=== PATIENT | male | born 1985 | race Caucasian/White ===

== ENCOUNTER 2016-12-04 20:42 | Emergency (ER) | payer OTHER ==
[~2016-12-04] VITALS: Ht 177.8 cm; Wt 123.5 kg
[~2016-12-04 20:42] MED LIST: AZIT250T5 PO; CEPH500T PO; CLAR500T2 PO; DULO60CA7 PO; FLUO10CA29 PO; FLUO20CA42 GT; GNT.3OP5 OU; HYDR-3702 PO; HYDR-3754 PO; LEVO300T5 PO; LISI-596; NF-TORA10 PO; OLOP5DRO OU; ONDAN4ODT PO; OXYC-109 PO; OXYC1TAB87 PO
--- OUTSIDE RECORDS SUMMARY | 2016-12-04 20:47 | XMS REPORT | Continuity of Care Document ---
Author Author [facility] Organization [facility] Address Unknown Phone Unavailable Care Team Providers Care Advanced Registered Nurse Name Role Phone CARLOSKLAUS MD PCP [phone] Insurance Providers Payer Name Policy Number Subscriber Name Relationship [employer] [id number] Phong Ashley 01 Chief Complaint and Reason for Visit Chief Complaint Altered Neurologic Status Reason for Visit [id number] Cervical radiculopathy Problems Medical Problems Problem Onset Date Status Cough 05/11/2012 Active Headache 05/11/2012 Active Fever 05/11/2012 Active Abdominal pain 11/08/2012 Active Crushing injury of finger ~11/26/2013 Active Viral pneumonia Unknown Active Cervical radiculopathy Unknown Active Near syncope Unknown Active Medications Medication Dose Route Sig Days/Qty Instructions Order Date Discontinued Date Status Lisinopril 05/11/12 11/08/12 Discontinued Azithromycin 250 Mg ORAL DAILY 3 Days 05/11/12 11/08/12 Discontinued Fluoxetine Hcl 20 Mg GT 11/26/13 06/01/14 Discontinued Fluoxetine Hcl 20 Mg ORAL DAILY 11/26/13 06/01/14 Discontinued Cephalexin 500 Mg ORAL FOUR TIMES DAILY 28 Qty 11/26/13 06/01/14 Discontinued Hydrocodone Bit/Acetaminophen 1 Tab ORAL Q 4H PRN 15 Qty Pain 11/26/13 06/01/14 Discontinued Clarithromycin 500 Mg ORAL TWICE A DAY 06/01/14 03/05/15 Discontinued Levothyroxine Sodium 325 Mcg ORAL DAILY 03/05/15 Active Acetaminophen/Hydrocodone Bitart 1 Tab ORAL EVERY 6 HOURS PRN PAIN 04/05/15 Discontinued Oxycodone Hcl/Acetaminophen 1 Tab ORAL NEEDED PRN PAIN 04/05/15 Active Social History No social history. Hospital Discharge Instructions No hospital discharge instructions. Plan of Care Discharge Date 04/06/15 4:02am Disposition 01 HOME OR SELF-CARE Condition at Discharge Stable Instructions/Education Provided Syncope (ED) Cervical Radiculopathy (ED) Prescriptions See Medications Section Referrals KLAUS MERCADO MD Additional Instructions/Education Follow up with your neurosurgeon later today regarding the discomfort and swelling from your neck surgery. Follow up with Dr. Mercado if you have any further issues with dizziness or near-fainting, and regarding your abnormal liver tests. Stay well hydrated and get up slowly to avoid fainting. Some of your test results may not be complete prior to your leaving the Emergency Department. The Emergency Department is not authorized to give test results over the phone. Please contact the doctor's office listed in this packet of information for your final results. Follow up with your primary care physician or return to the Emergency Department for worsening or worrisome symptoms. * Emergency Department phone number: [phone], x [phone]* MEDICAL RECORD If you need copies of your X-rays, call [phone]. If you need copies of your medical record, including lab results, a signed authorization for release of records will be required. A telephone call for release of Health Information is not allowed. BILLING Billing can sometimes be confusing and frustrating. To help avoid confusion in the future, please take a moment to acquaint yourself with the billing parties for services. SERVICE BILLING DEMOCRAT Emergency Room Services [facility] Physician Services [facility] X-rays [place] [facility] Patients will receive bills for services from the appropriate provider. If you have any questions about your [facility] bill, our staff will be happy to assist you. Please call [phone], and ask for the billing department. THANK YOU for choosing [facility] as your emergency care provider! Functional Status No functional status results. Allergies, Adverse Reactions, Alerts Allergen Type Severity Reaction Status Last Updated MORPHI Adverse Reaction Mild Nausea/Vomiting Active 04/05/15 Immunizations No immunization records. Vital Signs Acute Vital Signs Vital Response Date/Time Temperature (Fahrenheit) 97.1 Pulse 89 bpm Respirations 16 Height 5 ft 10 in Weight 275 lb Body Mass Index 39.0 kg/m^2 Results Test Source Date Result Interp. Ref. Range Comments Thyroid Stimulating Hormone (TSH) April 05, 2015 11:30pm 4.50 uIU/mL N 0.46-4.68 Activated Partial Thromboplast Time June 01, 2014 5:25pm 31.4 SEC N 25.0-39.0 Alanine Aminotransferase (ALT/SGPT) April 05, 2015 11:30pm 91 U/L H 30- 65 Albumin April 05, 2015 11:30pm 4.4 g/dL N 3.4-5.0 Albumin/Globulin Ratio April 05, 2015 11:30pm 1.189 N 1.1-1.8 Alkaline Phosphatase April 05, 2015 11:30pm 86 U/L N 38-126 Anion Gap April 05, 2015 11:30pm 18.8 MEQ/L H 3-15 Aspartate Amino Transf (AST/SGOT) April 05, 2015 11:30pm 59 U/L H 15-37 B-Type Natriuretic Peptide June 01, 2014 5:25pm 5 PG/ML N 0-100 BUN/Creatinine Ratio April 05, 2015 11:30pm 13 N 10-20 Basophils # (Auto) April 05, 2015 11:30pm 0.0 10^3uL Basophils (%) (Auto) April 05, 2015 11:30pm 0 % N 0-2 Blood Urea Nitrogen April 05, 2015 11:30pm 13 mg/dL N 7-18 C-Reactive Protein April 05, 2015 11:30pm 2.10 mg/dL H 0.0-0.9 Calcium Level April 05, 2015 11:30pm 9.5 mg/dL N 8.8-10.8 Calcium/Ionized Calcium Ratio April 05, 2015 11:30pm 3.9 mg/dL N 3.8-4.6 Calculated Osmolality April 05, 2015 11:30pm 277 mosm/L L 280-300 Carbon Dioxide Level April 05, 2015 11:30pm 25 mmol/L N 22-29 Chloride Level April 05, 2015 11:30pm 103 mmol/L N 98-108 Creatine Kinase MB April 05, 2015 11:30pm 0.8 ng/mL N 0.0-6.0 Creatinine April 05, 2015 11:30pm 0.99 mg/dL N 0.8-1.5 D-Dimer April 05, 2015 11:30pm 0.81 ug/mL PH 0.00-0.41 Results called to PAT IN ER FOR DR. Rees read back the results. Called by Karla Ragsdale at [phone] Eosinophils # (Auto) April 05, 2015 11:30pm 0.3 10^3uL Eosinophils (%) (Auto) April 05, 2015 11:30pm 2 % N 0-4 Estimat Glomerular Filtration Rate April 05, 2015 11:30pm 106.0 Estimated GFR (Non- April 05, 2015 11:30pm 87.6 Glucose Level April 05, 2015 11:30pm 115 mg/dL H 70-110 Group A Streptococcus Screen May 11, 2012 12:00am Negative Negative Hematocrit April 05, 2015 11:30pm 43.90 % N 39.00-50.00 Hemoglobin April 05, 2015 11:30pm 15.5 g/dL N 13.5-17.0 Lipase November 08, 2012 7:00am 49 U/L N 23-300 Lymphocytes # (Auto) April 05, 2015 11:30pm 3.8 X10^3 Lymphocytes (%) (Auto) April 05, 2015 11:30pm 31 % N 20-46 Mean Corpuscular Hemoglobin April 05, 2015 11:30pm 30.6 PG N 26.0-34.0 Mean Corpuscular Hemoglobin Concent April 05, 2015 11:30pm 35.3 g/dL N 31.0-37.0 Mean Corpuscular Volume April 05, 2015 11:30pm 87 FL N 80-100 Mean Platelet Volume April 05, 2015 11:30pm 11.2 FL H 6.0-9.5 Monocytes # (Auto) April 05, 2015 11:30pm 0.7 X10^3 Monocytes (%) (Auto) April 05, 2015 11:30pm 6 % N 3-11 JG-Mbi-U-Type Natriuretic Peptide April 05, 2015 11:30pm 14 pg/mL N 0- 125 <300 ng/mL - HF unlikely Age <50 years, NT-proBNP >450 pg/mL - HF Likely Age 50-75 yrs, NT-proBNP >900 pg/mL - HF Likely Age >75 yrs, NT-proBNP >1800 - HF likely Neutrophils # (Auto) April 05, 2015 11:30pm 7.3 X10^3 Neutrophils (%) (Auto) April 05, 2015 11:30pm 60 % N 51-67 Platelet Count April 05, 2015 11:30pm 249 10^3uL N 150-450 Potassium Level April 05, 2015 11:30pm 4.1 mmol/L N 3.5-5.1 Prothromb Time International Ratio April 05, 2015 11:30pm 1.0 N 0.8-1.4 Prothrombin Time April 05, 2015 11:30pm 12.7 SEC N 11.9-14.2 Red Blood Count April 05, 2015 11:30pm 5.07 10^6uL N 4.50-5.50 Red Cell Distribution Width April 05, 2015 11:30pm 12.3 % N 11.8-15.6 Sodium Level April 05, 2015 11:30pm 143 mmol/L N 135-150 Total Bilirubin April 05, 2015 11:30pm 0.4 mg/dL DN 0.1-1.0 Total Creatine Kinase April 05, 2015 11:30pm 179 U/L H 55-170 Total Protein April 05, 2015 11:30pm 8.1 g/dL N 6.4-8.5 Troponin I April 05, 2015 11:30pm < 0.012 ng/mL 0.010-0.080 Urine Bacteria April 05, 2015 11:23pm None seen /HPF Urine collection method Clean Catch Urine Bilirubin April 05, 2015 11:23pm Negative Negative Urine collection method Clean Catch Urine Blood November 08, 2012 8:50am Negative Negative Urine Clarity April 05, 2015 11:23pm Clear Urine collection method Clean Catch Urine Collection Type April 05, 2015 11:23pm Random voided Urine collection method Clean Catch Urine Color April 05, 2015 11:23pm Yellow Urine collection method Clean Catch Urine Glucose (UA) April 05, 2015 11:23pm Negative Negative Urine collection method Clean Catch Urine Ketones April 05, 2015 11:23pm Negative Negative Urine collection method Clean Catch Urine Leukocyte Esterase April 05, 2015 11:23pm Negative Negative Urine collection method Clean Catch Urine Mucus April 05, 2015 11:23pm 2+ H Urine collection method Clean Catch Urine Nitrite April 05, 2015 11:23pm Negative Negative Urine collection method Clean Catch Urine Protein April 05, 2015 11:23pm Negative Negative Urine collection method Clean Catch Urine RBC April 05, 2015 11:23pm 2-5 /HPF Urine collection method Clean Catch Urine RBC (Auto) April 05, 2015 11:23pm Trace-lysed H Negative Urine collection method Clean Catch Urine Specific [place] April 05, 2015 11:23pm 1.025 1.005-1.030 Urine collection method Clean Catch Urine Squamous Epithelial Cells April 05, 2015 11:23pm 0-2 /LPF Urine collection method Clean Catch Urine Urobilinogen April 05, 2015 11:23pm 0.2 mg/dL 0.2-1.0 Urine collection method Clean Catch Urine WBC April 05, 2015 11:23pm None seen /HPF Urine collection method Clean Catch Urine pH April 05, 2015 11:23pm 5.0 5.0 - 8.0 Urine collection method Clean Catch Volume Urine Centrifuged April 05, 2015 11:23pm 12 ml Urine collection method Clean Catch White Blood Count April 05, 2015 11:30pm 12.12 10^3uL H 4.0-11.0 Procedures No known history of procedures. Encounters Encounter Location Date/Time Departed Emergency Room [facility] 04/05/15 9:43pm Recent Diagnosis
--- OUTSIDE RECORDS SUMMARY | 2016-12-04 20:47 | XMS REPORT | Continuity of Care Document ---
Author Author [facility] Organization [facility] Address Unknown Phone Unavailable Care Team Providers Care Patient Accounts Specialist Name Role Phone CARLOSKLAUS MD PCP [phone] Insurance Providers Payer Name Policy Number Subscriber Name Relationship [employer] [id number] Phong Ashley 01 Chief Complaint and Reason for Visit Chief Complaint Altered Neurologic Status Reason for Visit [id number] Cervical radiculopathy Problems Medical Problems Problem Onset [...] worrisome symptoms. * Emergency Department phone number: [phone], x [phone]* MEDICAL RECORD If you need copies of your X-rays, call [phone]. If you need copies of [...] the billing parties for services. SERVICE BILLING [facility]PUBL[facility] Emergency Room Services [facility] Physician Services [facility] X-rays [place] [facility] Patients will receive bills for services from the appropriate provider. If you have any questions about your [facility] bill, our staff will be happy to assist you. Please call [phone], and ask for the billing department. THANK YOU for choosing [facility] as your emergency care provider! Functional Status [...] 05, 2015 11:30pm 6 % N 3-11 QI-Ome-B-Type Natriuretic Peptide April 05, 2015 11:30pm 14 [...] Urine collection method Clean Catch Urine Specific [place] April 05, 2015 11:23pm 1.025 1.005-1.030 Urine [...] Encounters Encounter Location Date/Time Departed Emergency Room [facility] 04/05/15 9:43pm Recent Diagnosis
[2016-12-04] MEDS ORDERED: KETOROLAC 30 MG/ML (TORADOL) 1 ML VIAL IV ONE (21:05)
[2016-12-04] MEDS ORDERED: ONDANSETRON 2 MG/ML (Z0FRAN) 2 ML VIAL IV ONE (21:05)
[2016-12-04] MEDS ORDERED: SODIUM CHLORIDE FLUSH 10 ML SYR IV PRN (21:05)
[2016-12-04] MEDS ORDERED: SODIUM CHLORIDE FLUSH 3 ML SYR IV ONE (21:05)
[2016-12-04] MEDS ORDERED: ROSU40TA PO (21:11)
[2016-12-04] MEDS ORDERED: LEVO75TA6 PO (21:11)
[2016-12-04] MEDS ORDERED: NFNEB10T PO (21:11)
[2016-12-04] MEDS ORDERED: ASPI-586 PO (21:11)
[2016-12-04] MEDS ORDERED: BUSP10TA95 PO (21:11)
[2016-12-04] MEDS ORDERED: CHOL500049 PO (21:11)
[2016-12-04 21:19] LABS: BASOPHILS % (AUTO) 0 % (0-2); EOSINOPHILS # (AUTO) 0.2 10^3uL; EOSINOPHILS % (AUTO) 2 % (0-4); LYMPHOCYTES # (AUTO) 3.2 X10^3; MEAN CORPUSCULAR HGB CONC 34.9 g/dL (31.0-37.0); MEAN CORPUSCULAR VOLUME 89 FL (80-100); MEAN PLATELET VOLUME 11.5 FL (6.0-9.5); MONOCYTES # (AUTO) 0.7 X10^3; MONOCYTES % (AUTO) 7 % (3-11); NEUTROPHILS # (AUTO) 5.8 X10^3; NEUTROPHILS % (AUTO) 59 % (51-67); PLATELET COUNT 195 10^3uL (150-450)
[2016-12-04 21:31] LABS: BILIRUBIN,URINE Negative (Negative); CLARITY,URINE Clear; COLOR,URINE Yellow; GLUCOSE, URINE (UA) Negative (Negative); LEUKOCYTE ESTERASE ,URINE Negative (Negative); PH,URINE 5.5 (5.0 - 8.0)
[2016-12-04 21:33] LABS: ALBUMIN 4.5 g/dL (3.4-5.0); ANION GAP 13.8 MEQ/L (3-15); CALCULATED IONIZED CALCIUM 3.9 mg/dL (3.8-4.6)
[2016-12-04 21:33] LABS: AMPHETAMINE SCREEN, URINE Negative (Negative); CANNABINOID SCREEN, URINE Negative (Negative); METHAMPHETAMINE SCREEN URINE S NEGATIVE (NEGATIVE); OPIATE SCREEN URINE Negative (Negative); PROPOXYPHENE STAT NEGATIVE (NEGATIVE)
--- NOTE | 2016-12-04 22:12 | Diagnostic Imaging Report ---
PROCEDURE: CT abdomen and pelvis without contrast. TECHNIQUE: Multiple contiguous axial images were obtained through the abdomen and pelvis without the use of intravenous contrast. INDICATION: Right lower quadrant pain. COMPARISON: 11/08/2012 FINDINGS: The lung bases are clear. No pericardial or pleural effusion. Kidneys are symmetric in size. There is a 1.5 x 1.5 cm well-circumscribed cyst in the midportion of the left kidney. No renal or ureteral calculi. No obstructive uropathy on either side. The urinary bladder is distended without focal wall thickening and there are no intraluminal calculi. Prostate is not enlarged. Evaluation of the abdominal viscera is mildly limited without IV contrast. Allowing for this, the spleen, pancreas, and adrenals are normal. Diffuse hypoattenuation of liver is indicative of hepatic steatosis. No focal hepatic lesion by noncontrast imaging. The stomach is decompressed. No bowel obstruction. The gallbladder is normal. No pericolonic inflammatory changes. The appendix is normal. Normal caliber abdominal aorta. No abdominal or pelvic lymphadenopathy. No concerning osseous lesions. IMPRESSION: 1. No acute intra-abdominal process. Specifically, no obstructive uropathy or urinary tract calculi. 2. Normal appendix. 3. Mild diffuse hepatic steatosis. Dictated by: Dictated on workstation # [id number]
[2016-12-04] MEDS ORDERED: HYDROmorphone 1 MG/ML (DILAUDID) SYRINGE IV ONE (22:25)
[2016-12-04 22:59] VITALS: BP 105/58
== END 2016-12-04 23:00 | disposition home or self-care (01) ==
LOC: ED 20:44
DX: A08.4 Viral intestinal infection, unspecified (principal); E03.9 Hypothyroidism, unspecified; I10 Essential (primary) hypertension; K76.0 Fatty (change of) liver, not elsewhere classified
CPT/HCPCS: 36415; 74176; 80053; 80307; 81003; 82150; 83690; 84443; 85025; 86140; 96361; 96374; 96375; 99284; J1170; J1885; J2405; J7030; 99283